=== PATIENT | male | born 1950 | race Caucasian/White ===

== ENCOUNTER → 2017-05-01 | Outpatient (CLI) | payer MEDICARE, OTHER ==
[~2017-05-01] MED LIST: ALAVERT10 M1 PO; AMLOPIDINE; ASPIRIN 32325 MG/TAB PO; ATENOLOL50 MG PO; AVAPRO300 MG PO; BYSTOLIC20 MG PO; CARDURA 8MG TAB8 MG PO; COZAAR100 MG PO; CRESTOR20 MG PO; FISH OIL CONC1000 MG PO; PRILOSEC 20MG20 MG PO; PRILOSEC10 MG PO
== END ==
LOC: COL.RAD 09:20
DX: I71.4 Abdominal aortic aneurysm, without rupture (principal)

== ENCOUNTER 2020-04-24 06:03 | Inpatient (IN) | payer MEDICARE, OTHER ==
[~2020-04-24] VITALS: Ht 182.9 cm; Wt 105.2 kg
[~2020-04-24 06:03] MED LIST changes: +ALDACTONE50 MG PO; -FISH OIL CONC1000 MG PO; +FISH OIL CONCEN1 SG2 PO; +LEVAQUIN 750MG750 M1 PO; +PRINCIPEN500 MG PO; +TOPROL XL100 MG PO
[2020-04-24 06:27] LABS: BASO # 0.1 (0.0-0.2); BASO % 0.4 % (0.0-2.0); EOS # 0.1 (0.0-0.7); EOS % 0.7 % (0-4.0); GRAN # 11.5 (1.4-6.5); GRAN % 84.2 % (42.2-75.2); HEMOGLOBIN 11.6 g/dl (13.5-18.0); MEAN CELL VOLUME 102 fl (80.0-100.0); MEAN CORPUSCULAR HEMOGLOBIN 34 pg (27.0-31.0); MEAN CORPUSCULAR HGB CONC 34 g/dl (33.0-37.0); MEAN PLATELET VOLUME 9.7 fl (7.4-10.4); MONO % 7.3 % (1.7-9.3); PLATELET COUNT 157 K/mm3 (130-400); RED BLOOD COUNT 3.38 M/mm3 (4.20-5.60); REDCELL DISTRIBUTION WIDTH-CV 13.2 % (11.5-14.5)
[2020-04-24 06:30] LABS: HEMATOCRIT 34.6 % (42.0-52.0)
[2020-04-24 06:40] LABS: ALANINE AMINOTRANSFERASE 146 U/L (4-49); ALBUMIN 3.9 gm/dL (3.5-5.0); ALKALINE PHOSPHATASE 147 U/L (50-136); ANION GAP 11 mmol/L (7-16); AST,SGOT 330 U/L (15-37); BILIRUBIN,TOTAL 2.6 mg/dL (0.0-1.0); BLOOD UREA NITROGEN 20 mg/dL (9-20); CALCIUM 8.6 mg/dL (8.4-10.2); CARBON DIOXIDE 22 mmol/L (22-30); CHLORIDE 103 mmol/L (98-107); CREATININE, serum 1.73 (0.66-1.25); GLUCOSE 130 mg/dL (74-106); LIPASE 330 U/L (23-300); POTASSIUM 3.7 mmol/L (3.4-5.0); SODIUM 136 mmol/L (137-145); TOTAL PROTEIN 6.6 gm/dL (6.4-8.2)
[2020-04-24 06:52] LABS: TROPONIN-I < 0.012 ng/mL (0.000-0.035)
[2020-04-24 07:27] LABS: COLLECTION METHOD CLEAN CATCH
[2020-04-24 07:36] LABS: MUCOUS Present /lpf; PH 6 (5-8); SQUAMOUS EPITHELIAL 0-2 /hpf; URINE APPEARANCE Clear; URINE BACTERIA None Seen /hpf; URINE BILIRUBIN Negative (NEGATIVE); URINE BLOOD Negative (NEGATIVE); URINE COLOR Yellow; URINE GLUCOSE 1+ (NEGATIVE); URINE KETONE Negative (NEGATIVE); URINE LEUKOCYTE ESTERASE Negative (NEGATIVE); URINE NITRATE Negative (NEGATIVE); URINE PROTEIN(semi-quant) Negative (NEGATIVE); URINE RBC 0-2 /hpf; URINE UROBILINOGEN >=4.0 mg/dL (NEGATIVE)
[2020-04-24 09:46] VITALS: BP 130/71; PULSE 100; TEMP 99.5
[2020-04-24 09:49] VITALS: BP 130/71; PULSE 100; TEMP 99.5
--- NOTE | 2020-04-24 12:16 | NUR ---
PT TO PROCEEDURE AT THIS TIME.
[2020-04-24 20:26] VITALS: BP 158/81; PULSE 74; TEMP 98.3
--- NOTE | 2020-04-24 22:15 | NUR ---
Assessment complete. Pt resting in bed. LR running to left forearm IV at 125 ml/hr. Pt denies pain or other needs at this time. Tolerating PO intake well. Will continue to monitor.
[2020-04-25] VITALS (7 sets, daily range): BP systolic 136–166; BP diastolic 53–78; PULSE 58–76; TEMP 98.1–98.7
--- NOTE | 2020-04-25 07:24 | NUR ---
Pt slept in bed throughout night. No complaints of pain or other concerns. Has remained stable throughout night.
--- NOTE | 2020-04-25 08:06 | NUR ---
PATIENT SHIFT ASSESSMENT COMPLETED AT THIS TIME. ALL LUNG JESUS COARSE UPON AUSCULTATION. PATIENT REPORTS A PRODUCTIVE COUGH WITH CLEAR SPUTUM, UNOBSERVED BY THIS NURSE. TRACE EDEMA TO FEET BILATERALLY. IV FLUIDS INFUSING TO LEFT AC IV VIA PUMP. CALL LIGHT IN REACH. PATIENT DENIES ANY NEEDS AT THIS TIME.
[2020-04-25 08:51] LABS: BASO % 0.3 % (0.0-2.0); EOS # 0.1 (0.0-0.7); EOS % 1.4 % (0-4.0); GRAN # 7.8 (1.4-6.5); GRAN % 84.2 % (42.2-75.2); LYMPH # 0.7 (1.2-3.4); LYMPH % 7.3 % (20.0-51.0); MEAN CELL VOLUME 102 fl (80.0-100.0); MEAN CORPUSCULAR HEMOGLOBIN 36 pg (27.0-31.0); MEAN CORPUSCULAR HGB CONC 35 g/dl (33.0-37.0); MEAN PLATELET VOLUME 10.5 fl (7.4-10.4); MONO # 0.6 (0.1-0.6); MONO % 6.5 % (1.7-9.3); PLATELET COUNT 133 K/mm3 (130-400); REDCELL DISTRIBUTION WIDTH-CV 13.5 % (11.5-14.5)
[2020-04-25 08:53] LABS: HEMATOCRIT 31.7 % (42.0-52.0)
[2020-04-25 09:07] LABS: ALBUMIN 3.6 gm/dL (3.5-5.0); BILIRUBIN,TOTAL 7.1 mg/dL (0.0-1.0); CREATININE, serum 1.71 (0.66-1.25); POTASSIUM 4.3 mmol/L (3.4-5.0); TOTAL PROTEIN 6.3 gm/dL (6.4-8.2)
--- NOTE | 2020-04-25 10:29 | NUR ---
Initial visit; Patient thanked Showroom Salesperson for looking in on him and offering God's blessings for healing.
--- NOTE | 2020-04-25 13:57 | NUR ---
Dance Master met with the patient to complete initial intake. The patient lives in [place] with his , Ghislaine. The patient has a CPAP. The patient reports he does use it daily. He is currently needing a new straps but does not have a supplier. He inquired about local DME companies. BARBARA to provided phone numbers. The patient's PCP is Dr. Nicole Stoll and patient receives medications from [facility] with no difficulties. The patient does not have advanced directives in the EMR but states they are complete and designate his . The patient plans to return home at discharge. The patient is independent in his room. There are no additional needs at this time.
--- NOTE | 2020-04-25 17:12 | NUR ---
PATIENT CURRENTLY RESTING IN BED WITH TV ON. PATIENT DENIES PAIN. WILL REPORT OFF TO ONCOMING NURSE.
--- NOTE | 2020-04-25 23:54 | NUR ---
Brianda Carranza APRN notified of elevated blood pressure. No new orders received. Will monitor patient.
[2020-04-26 04:12] VITALS: BP 134/79; PULSE 51; TEMP 99
--- NOTE | 2020-04-26 06:10 | NUR ---
Patient has rested well throughout the night. Continues on IV Zosyn. IV noted to infiltrate to left forearm. New 20G started in right hand. Tolerated this well. Patient denies pain. Compliant with cares and pleasant with staff. Independent in the room. Denies any further needs. Will report off to day shift nurse.
[2020-04-26 07:46] VITALS: BP 110/45; PULSE 59; TEMP 98.8
[2020-04-26 07:50] LABS: BASO % 0.6 % (0.0-2.0); EOS # 0.4 (0.0-0.7); EOS % 5.9 % (0-4.0); GRAN # 5.3 (1.4-6.5); GRAN % 75.8 % (42.2-75.2); HEMOGLOBIN 11.9 g/dl (13.5-18.0); LYMPH # 0.7 (1.2-3.4); MEAN CELL VOLUME 101 fl (80.0-100.0); MEAN CORPUSCULAR HEMOGLOBIN 35 pg (27.0-31.0); MEAN CORPUSCULAR HGB CONC 35 g/dl (33.0-37.0); MEAN PLATELET VOLUME 10.7 fl (7.4-10.4); MONO # 0.5 (0.1-0.6); MONO % 7.4 % (1.7-9.3); PLATELET COUNT 139 K/mm3 (130-400); REDCELL DISTRIBUTION WIDTH-CV 13.3 % (11.5-14.5)
[2020-04-26 07:51] LABS: HEMATOCRIT 34.4 % (42.0-52.0)
[2020-04-26 08:01] LABS: ALBUMIN 3.8 gm/dL (3.5-5.0); BILIRUBIN,TOTAL 3.6 mg/dL (0.0-1.0); CALCIUM 9.3 mg/dL (8.4-10.2); CREATININE, serum 1.58 (0.66-1.25); TOTAL PROTEIN 6.8 gm/dL (6.4-8.2)
--- NOTE | 2020-04-26 10:03 | NUR ---
Dr Espinosa here to see patient.
[2020-04-26] MEDS ORDERED: AMOXICILLIN 8751 TAB PO (10:07)
[2020-04-26 11:07] VITALS: BP 136/80; PULSE 77; TEMP 97.8
--- NOTE | 2020-04-26 11:07 | NUR ---
Patient alert and oriented, answers questions appropriately. See assessment. Abdomen soft, non tender, non distended. Bowel sounds active x4 quads. +Flatus. No c/o pain or discomfort.
--- NOTE | 2020-04-26 12:33 | NUR ---
Discharge instructions reviewed with patient, verbalized understanding. Discharged via wheelchair to auto/home with family at 1220.
== END 2020-04-26 12:20 | disposition home or self-care (01) | DRG 872 ==
LOC: COL.ER 06:03 → SURG 08:02
PROVIDERS: Emergency Medicine; Internal Medicine Gastroenterology; Physician Assistant; ADMIT Student in an Organized Health Care Education/Training Program
PROC: 0FC98ZZ Extirpation of Matter from Common Bile Duct, Via Natural or Artificial Opening Endoscopic (ICD-10-PCS; principal; 2020-04-24 12:00)
DX: A41.9 Sepsis, unspecified organism (principal); K80.32 Calculus of bile duct with acute cholangitis without obstruction; N17.9 Acute kidney failure, unspecified; M87.9 Osteonecrosis, unspecified; E78.5 Hyperlipidemia, unspecified; I25.10 Atherosclerotic heart disease of native coronary artery without angina pectoris; K21.9 Gastro-esophageal reflux disease without esophagitis; G47.33 Obstructive sleep apnea (adult) (pediatric); F17.210 Nicotine dependence, cigarettes, uncomplicated; I25.2 Old myocardial infarction; N18.9 Chronic kidney disease, unspecified; Z90.49 Acquired absence of other specified parts of digestive tract; Z95.5 Presence of coronary angioplasty implant and graft
CPT/HCPCS: 99223-AI; 99233-AI; 99239; C1769; J2270; J2405; J2543; J2704; J3010; J7030; J7120; Q9967

== ENCOUNTER → 2021-01-09 | Outpatient (CLI) | payer MEDICARE, OTHER ==
[~2021-01-09] MED LIST changes: +AMOXICILLIN 8751 TAB PO
== END ==
LOC: MHCPAIN 12:22
DX: M54.5 Low back pain (principal); M53.3 Sacrococcygeal disorders, not elsewhere classified; G89.29 Other chronic pain
CPT/HCPCS: G0463

== ENCOUNTER → 2021-01-15 | Outpatient (CLI) | payer MEDICARE, OTHER | LOC: MHCPAIN 11:29 | DX: M47.817 Spondylosis without myelopathy or radiculopathy, lumbosacral region (principal); M54.5 Low back pain; M53.3 Sacrococcygeal disorders, not elsewhere classified | CPT/HCPCS: J1040; Q9967 ==

== ENCOUNTER → 2021-01-30 | Outpatient (CLI) | payer MEDICARE, OTHER | LOC: MHCPAIN 14:23 | DX: M47.817 Spondylosis without myelopathy or radiculopathy, lumbosacral region (principal); M53.3 Sacrococcygeal disorders, not elsewhere classified; M54.5 Low back pain | CPT/HCPCS: G0463 ==

== ENCOUNTER → 2021-07-03 | Outpatient (CLI) | payer MEDICARE, OTHER | LOC: COL.RAD 13:46 | DX: Z12.2 Encounter for screening for malignant neoplasm of respiratory organs (principal); F17.210 Nicotine dependence, cigarettes, uncomplicated ==

== ENCOUNTER 2021-11-24 11:44 | Emergency (ER) | payer MEDICARE, OTHER ==
[~2021-11-24] VITALS: Ht 182.9 cm; Wt 109.1 kg
[2021-11-24 12:01] VITALS: TEMP 98.5
[2021-11-24] MEDS ORDERED: ANECREAM TP (13:17)
[2021-11-24] MEDS ORDERED: NORCO 325 MG-51 TAB PO (13:17)
[2021-11-24] MEDS ORDERED: ZITHROMAX Z PA250 MG PO (13:17)
[2021-11-24] MEDS ORDERED: PROAIR HFA0.09 MG/AC IH (13:17)
[2021-11-24 13:38] VITALS: BP 160/95; PULSE 70
== END 2021-11-24 13:40 | disposition home or self-care (01) ==
LOC: COL.ER 11:44
DX: S22.31XA Fracture of one rib, right side, initial encounter for closed fracture (principal); Z87.891 Personal history of nicotine dependence; Z79.82 Long term (current) use of aspirin; W01.198A Fall on same level from slipping, tripping and stumbling with subsequent striking against other object, initial encounter
CPT/HCPCS: A9284; J1885

== ENCOUNTER 2023-07-24 06:37 | Day surgery (SDC) | payer MEDICARE ==
[~2023-07-24] VITALS: Ht 185.4 cm; Wt 109.1 kg
[~2023-07-24 06:37] MED LIST changes: +ANECREAM TP; +NORCO 325 MG-51 TAB PO; +PROAIR HFA0.09 MG/AC IH; +ZITHROMAX Z PA250 MG PO
[2023-07-24] MEDS ORDERED: LIPITOR 80MG80 MG PO (06:44)
[2023-07-24] MEDS ORDERED: ALDACTONE50 MG PO (06:44)
[2023-07-24] MEDS ORDERED: IMODIUM A-D2 MG PO (06:44)
[2023-07-24] MEDS ORDERED: COZAAR 25MG25 MG/TAB PO (06:45)
[2023-07-24] MEDS ORDERED: TOPROL XL100 MG PO (06:45)
[2023-07-24] MEDS ORDERED: CARDURA 8MG TAB8 MG PO (06:46)
[2023-07-24] MEDS ORDERED: MASON NATURAL2000 IU PO (06:47)
[2023-07-24] MEDS ORDERED: LIORESAL 1010 MG/TAB PO (06:47)
[2023-07-24] MEDS ORDERED: FISH OIL 1000MG1 CAP PO (06:48)
[2023-07-24] MEDS ORDERED: 00186-0370-20 IH (06:48)
[2023-07-24] MEDS ORDERED: PRILOSEC 20MG20 MG PO (06:48)
[2023-07-24 07:06] VITALS: BP 124/79; PULSE 88; TEMP 97.2
[2023-07-24 09:20] VITALS: BP 135/93; PULSE 81; TEMP 96.9
[2023-07-24 09:30] VITALS: BP 126/94; PULSE 73
--- NOTE | 2023-07-24 09:54 | NUR ---
0920- PATIENT RETUR[place] [facility] [facility] [place]. PT AWAKE AND ALERT. RESPIRATIONS UNLABORED. AMBULATED TO RECLINER CHAIR WITH 2:1 SBA. PT DENIES NAUSEA OR ABDOMINAL PAIN. HOOKED UP TO MONITOR AND VS OBTAINED. CALL LIGHT AT SIDE AND PRESENT. PT VERY COLD, GAVE FRESH WARM BLANKETS TWICE. PT'S REPORTED THAT THE DOCTOR SPOKE TO HER BEFORE THE PATIENT CAME BACK TO THE ROOM. 0930- PATIENT TOLERATING PEPSI AND MUFFIN WITHOUT NAUSEA. 0940- D/C INSTRUCTIONS REVIEWED WITH PATIENT. PT VERBALIZED UNDERSTANDING AND A COPY OF INSTRUCTIONS PROVIDED IN D/C FOLDER. 0945- PT DRESSED HIMSELF WITH ASSISTANCE FROM HIS . 0954- PATIENT DISCHARGED FROM UNIT VIA W/C TO A PERSONAL VEHICLE. PT LEFT HOSPITAL IN STABLE CONDITION.
== END 2023-07-24 09:54 | disposition home or self-care (01) ==
LOC: SDCO 06:37
DX: Z12.11 Encounter for screening for malignant neoplasm of colon (principal); D12.2 Benign neoplasm of ascending colon; D12.4 Benign neoplasm of descending colon; G47.33 Obstructive sleep apnea (adult) (pediatric); E66.9 Obesity, unspecified; Z87.891 Personal history of nicotine dependence
CPT/HCPCS: J2704; J7120